=== PATIENT | female | born 1955 | race Hispanic/Latino ===

== ENCOUNTER → 2018-08-30 | Day surgery (SDC) | payer MEDICARE ==
--- NOTE | 2018-08-25 14:19 | Diagnostic Imaging Report ---
EXAMINATION: CHEST 2 VIEWS INDICATION: Pre-op. COMPARISON: None FINDINGS: TUBES and LINES: None. LUNGS: Lungs are well inflated. There is no evidence of pneumonia or pulmonary edema. PLEURA: No pleural effusion or pneumothorax. HEART AND MEDIASTINUM: The cardiomediastinal silhouette is unremarkable. BONES AND SOFT TISSUES: No acute osseous lesion. Soft tissues are unremarkable. UPPER ABDOMEN: No free air under the diaphragm. IMPRESSION: No acute radiographic abnormality. Signed by: Dr. Domitila Posadas MD on 08/25/2018 2:16 PM
[2018-08-25 14:23] LABS: BASOPHILS # (AUTO) 0.1 (0.0-0.1); BASOPHILS % 0.6 % (0.0-1.0); EOSINOPHILS # (AUTO) 0.2 (0.0-0.4); EOSINOPHILS % 1.7 % (0.0-6.0); HEMOGLOBIN 13.6 g/dL (12.0-16.0); LYMPHOCYTES # (AUTO) 4.3 (1.0-3.2); LYMPHOCYTES % 34.4 % (18.0-39.1); MEAN CORPUSCULAR HEMOGLOBIN 30.6 pg (28-32); MEAN CORPUSCULAR HGB CONC 33.2 g/dL (31-35); MEAN CORPUSCULAR VOLUME 92.1 fL (81-99); MONOCYTES # (AUTO) 0.7 (0.2-0.8); MONOCYTES % 5.5 % (4.4-11.3); NEUTROPHILS # (AUTO) 7.2 (2.1-6.9); NEUTROPHILS % 57.5 % (38.7-80.0); PLATELET COUNT 344 x10e3/uL (140-360); RED BLOOD COUNT 4.45 x10e6/uL (3.6-5.1); RED CELL DISTRIBUTION WIDTH 13.5 % (11.7-14.4)
[~2018-08-30] MED LIST: ACETAMINOPHEN/CODEINE 300MG - 30MG TAB ONE; ALENDRONATE SOD70 MG PO; BUPIVACAINE HCL 0.5% INJ 30 ML VIAL INJ ONE; CEFAZOLIN SOD 1 GM/NS 50ML 50 ML IV ONE; DEXAMETHASONE SOD PHOS INJ 4 MG/ML VIAL ONE; FENTANYL CITRATE/PF 100MCG/2 ML INJ ONE; GABAPENTIN300 MG PO; IBUPROFEN400 MG PO; LABETALOL HCL 5 MG/ML 20ML VIAL ONE; LIDOCAINE HCL 2% LOCAL INJ 5 ML SDV VIAL INJ ONE; MIDAZOLAM HCL 2 MG/2 ML VIAL ONE; ONDANSETRON HCL INJ 2MG/ML 2ML 2 MG/ML VIAL ONE; PROPOFOL IV EMULSION 10 MG/ML 20 ML VIAL ONE; SEVOFLURANE INHAL SOLN 250 ML PEN BTL ONE
--- OUTSIDE RECORDS SUMMARY | 2018-08-30 05:11 | XMS REPORT ---
Author Author [facility] Address Unknown Phone Unavailable Care Team Providers Care Catia Designer Name Role Phone Marguerite RICO Unavailable Unavailable Problems This patient has no known problems. Allergies, Adverse Reactions, Alerts This patient has no known allergies or adverse reactions. Medications This patient has no known medications. Encounters Start Date/Time End Date/Time Encounter Type Admission Type Attending [facility] Care Department Encounter ID 2018-06-22 08:19:00 2018-06-22 08:19:00 Outpatient [id number] 2017-06-30 00:00:00 2017-06-30 00:00:00 Outpatient [facility] [id number] 2017-06-27 00:00:00 2017-06-27 00:00:00 Outpatient [facility] [id number] 2017-06-22 00:00:00 2017-06-22 00:00:00 Outpatient [facility] [id number] 2017-06-16 00:00:00 2017-06-16 00:00:00 Outpatient [facility] [id number] 2017-06-14 00:00:00 2017-06-14 00:00:00 Outpatient [facility] [id number] 2017-06-06 00:00:00 2017-06-06 00:00:00 Outpatient [facility] [id number] 2017-05-19 07:22:49 2017-05-19 07:22:49 Outpatient [facility] [id number] 2017-04-19 13:25:56 2017-04-19 13:25:56 Outpatient [facility] [id number] 2017-03-28 16:36:47 2017-03-28 16:36:47 Outpatient [facility] [id number] 2017-02-24 00:00:00 2017-02-24 00:00:00 Outpatient [facility] [id number] 2017-02-22 12:38:06 2017-02-22 12:38:06 Outpatient [facility] [id number] 2017-02-22 11:05:07 2017-02-22 11:05:07 Outpatient [facility] [id number] 2016-12-30 12:56:23 2016-12-30 12:56:23 Outpatient [facility] [id number] 2016-11-17 09:59:45 2016-11-17 09:59:45 Outpatient [facility] [id number] 2016-10-15 00:00:00 2016-10-15 00:00:00 Outpatient [facility] [id number] 2016-09-03 12:38:39 2016-09-03 12:38:39 Outpatient [facility] [id number] 2016-07-09 13:49:38 2016-07-09 13:49:38 Outpatient [facility] [id number] Results Test Description Test Time Test Comments Text Results Atomic Results Result Comments CHEST 2 VIEWS 2018-08-25 14:15:00 [place] [address] Patient Name: BENNETT CASTANEDA MR #: [id number] : 1955 Age/Sex: 63/F Req #: [id number] Adm Physician: Ordered by: Marguerite RICO DP Report #: [id number] Location: OR Room/Bed: Procedure: [id number] DX/CHEST 2 VIEWS Exam Date: 08/25/18 Exam Time: 1401 REPORT STATUS: Signed EXAMINATION: CHEST 2 VIEWS INDICATION: Pre-op. COMPARISON: None FINDINGS: TUBES and LINES: None. LUNGS: Lungs are well inflated. There is no evidence of pneumonia or pulmonary edema. PLEURA: No pleural effusion or pneumothorax. HEART AND MEDIASTINUM: The cardiomediastinal silhouette is unremarkable. BONES AND SOFT TISSUES: No acute osseous lesion. Soft tissues are unremarkable. UPPER ABDOMEN: No free air under the diaphragm. IMPRESSION: No acute radiographic abnormality. Signed by: Dr. Tal Adames MD on 08/25/2018 2:16 PM Dictated By: TAL ADAMES MD 1416 Transcribed By: KHALIDA on 08/25/181415 COPY TO: Marguerite RICO DPM
--- NOTE | 2018-08-30 08:44 | Operative Report ---
DATE OF PROCEDURE: 08/30/2018 SURGEON: Marguerite Camacho DPM DIVISION SUPERVISOR SURGEON: Linnea Valle DPM PREOPERATIVE DIAGNOSES: 1. Hammertoe contracture 2, 3, 4, and 5 of the left foot. 2. 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 PLANNED PROCEDURE: 1. Left 4th digit arthroplasty with left 4th metatarsal head plantar condylectomy. 2. Tenotomy and capsulotomy of the left 2nd digit, tenotomy capsulotomy of the left 3rd digit, and tenotomy and capsulotomy of the left 5th digit. ANESTHESIA: General with a postoperative block consisting of 10 mL of 0.5% Marcaine plain mixed with 1 mL of dexamethasone phosphate. HEMOSTASIS: Pneumatic thigh tourniquet set at 350 mmHg for a total time of approximately 20 minutes. MATERIALS: One 0.045 K-wire, 3-0 Vicryl and 4-0 Prolene. ESTIMATED BLOOD LOSS: Less than 10 mL. PATHOLOGY: None. PROCEDURE NOTE: The patient was seen in the preoperative waiting room, where the correct procedure and site were identified. The patient was brought to the operating room and placed on the operating table in supine position. General anesthesia was initiated at this time. A well-padded pneumatic tourniquet was placed about the patient's left thigh. The left foot, ankle, and leg was then scrubbed, prepped, and draped in the usual aseptic manner. The left foot, ankle, and leg was exsanguinated with an Esmarch bandage and the pneumatic thigh tourniquet was inflated to 350 mmHg for a total time of approximately 20 minutes. Attention was directed to the dorsal aspect of the patient's left 4th digit, where a 2 cm linear incision was made directly over the proximal interphalangeal joint. The incision was carried through subcutaneous tissue it from deeper underlying structures. All neurovascular structures were identified, retracted medially and laterally, and all bleeders were cauterized and ligated as deemed necessary. A tenotomy and capsulotomy were performed at the level of the 4th proximal interphalangeal joint. Utilizing a sagittal saw, the head of the proximal phalanx as well as the base of the middle phalanx was resected and passed off to the back table. The wound was then copiously irrigated with sterile saline. Next, attention was directed to the 4th metatarsophalangeal joint, where a second 2 cm incision was made. The incision was carried down to the level of the joint capsule. A tenotomy and capsulotomy were performed at the 2nd metatarsophalangeal joint to allow for full reduction of the hammertoe. Next, utilizing McGlamry elevator, the 4th digit was freed of all capsular ligamentous attachments. Utilizing an osteotome and mallet, the plantar condyle was resected and shaved the rest. Next, utilizing a 0.045 K-wire in a retrograde fashion was drilled through the middle and distal phalanx back into the proximal phalanx into the metatarsal head and this was confirmed via intraoperative fluoroscopy. Through the same incision, a tenotomy and capsulotomy was performed of the 3rd metatarsophalangeal joint. A stab incision was performed on the 2nd metatarsophalangeal joint and a tenotomy and capsulotomy was performed and a stab incision was performed along the 5th metatarsophalangeal joint, where a tenotomy and capsulotomy was performed. All wounds were copiously irrigated with sterile saline. The capsule and deep tissue were reapproximated with 3-0 Vicryl, subcutaneous tissue with 3-0 Vicryl, and the skin was closed using a running interlocking stitch with 4-0 Prolene as well as simple interrupted sutures with 4-0 Prolene. The incision site was then dressed with Adaptic, 4x4s, Kerlix, David wrap, and a postop shoe. The patient tolerated the procedure and anesthesia well. The patient was transferred to the postoperative recovery with vital signs stable and vascular status intact. The patient was monitored there for a short period time before being sent home with the following written and oral instructions. 1. Keep the dressing clean, dry, and intact. 2. The patient is to remain minimal heel touch partial weightbearing and to avoid excessive ambulation until being seen in the office. 3. The patient is given the office number to contact us if any problems arise. Dictated by Linnea Valle DPM S JS [place] (Charley)/MODL /[id number] EVONNE
[2018-08-30 10:15] VITALS: BP 127/77
== END | disposition home or self-care (01) ==
LOC: OR 05:08
PROVIDERS: ATTEND Podiatrist Foot & Ankle Surgery
DX: M20.42 Other hammer toe(s) (acquired), left foot (principal); M89.372 Hypertrophy of bone, left ankle and foot; M19.90 Unspecified osteoarthritis, unspecified site; R00.1 Bradycardia, unspecified; Z01.810 Encounter for preprocedural cardiovascular examination; Z01.812 Encounter for preprocedural laboratory examination; Z01.818 Encounter for other preprocedural examination
CPT/HCPCS: 28270 ×3; 28285; 28288; 36415; 71046; 85025; 93005; C1713; J0690; J1100; J2001; J2250; J2405; J2704; J3010; J3490